=== PATIENT | male | born 1990 | race Caucasian/White ===

== ENCOUNTER 2018-11-01 10:17 | Emergency (ER) | payer SELFPAY ==
[2018-11-01 10:25] VITALS: BP 138/86
--- NOTE | 2018-11-01 10:48 | ED Physician Documentation ---
PD HPI UPPER EXT INJURY - Stated complaint Stated Complaint: LT HAND PX - Chief complaint Chief Complaint: Ext Problem - History obtained from History obtained from: Patient - History of Present Illness Location: Left, Hand Type of injury: Fall Where injury occurred: Home Timing - onset: Yesterday Timing - duration: Hours Timing - details: Abrupt onset, Still present Improved by: Rest, Ice, Immobilization Worsened by: Moving, Palpating Associated symptoms: Swelling. No: Weakness, Numbness Contributing factors: No: Anticoagulated Similar symptoms before: Has not had sx before Recently seen: Not recently seen - Additonal information Additional information: 28-year-old male was at home caring piece of plywood up stairs when he fell he fell onto his left hand onto the dorsum and he complains of pain over the second metacarpal with swelling there as well. Review of Systems Constitutional: denies: Fever, Chills Eyes: denies: Decreased vision Ears: denies: Ear pain Nose: denies: Congestion Throat: denies: Sore throat Respiratory: denies: Cough GI: denies: Vomiting Skin: denies: Rash Musculoskeletal: reports: Extremity pain, Extremity swelling. denies: Neck pain, Back pain Neurologic: denies: Generalized weakness, Focal weakness, Numbness PD PAST MEDICAL HISTORY - Past Medical History Past Medical History: No - Past Surgical History Past Surgical History: No - Present Medications Home Medications: Ambulatory Orders Medication Instructions Recorded Confirmed No Known Home Medications 11/01/18 11/01/18 - Allergies Allergies/Adverse Reactions: Allergies Allergy/AdvReac Type Severity Reaction Status Date / Time No Known Drug Allergies Allergy Verified 11/01/18 10:25 - Social History Does the pt smoke?: Yes Smoking Status: Current some day smoker Does the pt drink ETOH?: No Does the pt have substance abuse?: No - Immunizations Immunizations: TDAP current <10years PD ED PE NORMAL - Vitals Vital signs reviewed: Yes (hypertensive) - General General: Alert and oriented X 3, No acute distress, Well developed/nourished - HEENT HEENT: Atraumatic, PERRL, EOMI - Respiratory Respiratory: No respiratory distress - Derm Derm: Normal color, Warm and dry, No rash - Extremities Extremities: Other (There is swelling and point tenderness to the dorsum of the left hand over the 2nd metacarpal with swelling of the index finger as well. distal n/v is intact. 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, No motor deficit, No sensory deficit, Normal speech Eye Opening: Spontaneous Motor: Obeys Commands Verbal: Oriented GCS Score: 15 - Psych Psych: Normal mood, Normal affect Results - Vitals Vitals: Vital Signs - 24 hr 11/01/18 10:22 Temperature 36.8 C Heart Rate 68 Respiratory 18 Rate Blood Pressure 138/86 H O2 Saturation 97 Oxygen O2 Source Room air - Rads (name of study) left hand Radiology: Prelim report reviewed (Impression: Findings suspicious for nondisplaced fracture of the base of the second metacarpal.), EMP read indepedently, See rad report Procedures - Splint (location) left hand Splint applied by: Tech Type of splint: Fiberglass, Volar cock up Other: Patient tolerated well, No complications, Neurovascular intact, Good alignment PD MEDICAL DECISION MAKING - ED course Complexity details: reviewed results, re-evaluated patient, considered differential, d/w patient ED course: 28-year-old male with a contusion to the left hand appears to have a nondisplaced fracture to the proximal second metacarpal. He is placed into a volar splint and will have follow-up with orthopedics. Departure - Departure Disposition: 01 Home, Self Care Clinical Impression: Hand fracture, left Qualifiers: Encounter type: initial encounter Fracture type: closed Qualified Code(s): S62.92XA - Unspecified fracture of left wrist and hand, initial encounter for closed fracture Condition: Stable Instructions: ED Fx Hand Closed Follow-Up: [facility] [Provider Group]
--- NOTE | 2018-11-01 11:16 | XRAY Report ---
Reason: contusion dorsal 2nd MC Procedure Date: 11/01/2018 Accession Number: [id number] / [id number] Procedure: XR - Hand 3 View LT CPT Code: FULL RESULT: EXAM: LEFT HAND RADIOGRAPHY EXAM DATE: 11/01/2018 11:05 AM. CLINICAL HISTORY: Contusion dorsal 2nd MC. Fell. Pain. Swelling over the second metacarpal. COMPARISON: None. TECHNIQUE: 3 views. FINDINGS: Bones: Linear lucency within the base of the second metacarpal is suspicious for nondisplaced fracture. Joints: Normal. No subluxations. Soft Tissues: Normal. No soft tissue swelling. IMPRESSION: Findings suspicious for nondisplaced fracture of the base of the second metacarpal. RADIA
== END 2018-11-01 11:50 | disposition home or self-care (01) ==
LOC: ED 10:17
DX: S62.391A Other fracture of second metacarpal bone, left hand, initial encounter for closed fracture (principal); W10.9XXA Fall (on) (from) unspecified stairs and steps, initial encounter; Y93.89 Activity, other specified; Y92.008 Other place in unspecified non-institutional (private) residence as the place of occurrence of the external cause; F17.200 Nicotine dependence, unspecified, uncomplicated
CPT/HCPCS: 29125; 99282

== ENCOUNTER 2023-11-26 10:14 | Emergency (ER) | payer SELFPAY ==
[2023-11-26 10:44] VITALS: O2SAT 100
--- NOTE | 2023-11-26 13:39 | ED Physician Documentation ---
PD HPI WOUND RECHECK - Stated complaint Stated Complaint: RT ARM RED SWELLING - Chief complaint Chief Complaint: Wound - Histroy obtained from History obtained from: Patient - Additional information Additional information: 33-year-old gentleman had a new tattoo on the right arm about 3 weeks ago and over the last few days has developed painful draining bumps in that area. PD PAST MEDICAL HISTORY - Past Medical History Past Medical History: No - Past Surgical History Past Surgical History: No - Present Medications Home Medications: Ambulatory Orders Medication Instructions Recorded Confirmed Chlorhexidine Gluconate [Hibiclens] 10 ml TP DAILY #236 ml 11/26/23 Mupirocin 2% Oint [Bactroban 2% 1 applic TOP BID #22 gm 11/26/23 Oint] Sulfamethox/Trimeth 800/160 1 each PO BID #14 tablet 11/26/23 [Bactrim Ds 800/160] - Allergies Allergies/Adverse Reactions: Allergies Allergy/AdvReac Type Severity Reaction Status Date / Time No Known Drug Allergies Allergy Verified 11/26/23 10:39 - Social History Does the pt smoke?: Yes Smoking Status: Current every day smoker Does the pt drink ETOH?: No Does the pt have substance abuse?: No - Immunizations Immunizations: TDAP current <10years - POLST Patient has POLST: No PD ED PE NORMAL - Vitals Vital signs reviewed: Yes - General General: Alert and oriented X 3, No acute distress - Extremities Extremities: Other (He has pustules in and around his new tattoo on the right forearm, 1 of which was expressed and sent for culture.) - Neuro Neuro: Alert and oriented X 3, Normal speech Results - Vitals Vitals: Vital Signs - 24 hr 11/26/23 11/26/23 10:36 13:34 Temperature 36.6 C 36.7 C Heart Rate 92 76 Respiratory 20 98 H Rate Blood Pressure 126/80 134/88 H O2 Saturation 100 100 Oxygen O2 Source Room air PD Medical Decision Making - ED course ED course: Looking like a staph skin infection with small pustules. Nothing needing formal I&D to be done. There was a wound culture sent and he started on Bactrim, Hibiclens, and mupirocin. Departure - Departure Disposition: Home, Self Care Clinical Impression: Staph skin infection Condition: Stable Record reviewed to determine appropriate education?: Yes Instructions: ED Staph Infec Abx Tx Only Prescriptions: Sulfamethox/Trimeth 800/160 [Bactrim Ds 800/160] 1 each PO BID #14 tablet Mupirocin 2% Oint [Bactroban 2% Oint] 1 applic TOP BID #22 gm Chlorhexidine Gluconate [Hibiclens] 10 ml TP DAILY #236 ml Comments: You were seen today for what looks like a staph skin infection under your new tattoo. We are performing a wound culture, the results should be done in 48-72 hours. If antibiotic change is necessary we will call you. Return if worse in the meantime, especially if you develop increased pain, fevers, cannot keep down the medication. Otherwise follow-up with your physician in approximately 2-3 days. I sent your prescriptions electronically to [facility] in [place]. Forms: PCP List
[2023-11-26 13:44] VITALS: BP 134/88
== END 2023-11-26 13:49 | disposition home or self-care (01) ==
LOC: ED 10:14
DX: L08.89 Other specified local infections of the skin and subcutaneous tissue (principal); B95.8 Unspecified staphylococcus as the cause of diseases classified elsewhere; F17.200 Nicotine dependence, unspecified, uncomplicated
CPT/HCPCS: 99283